=== PATIENT | female | born 1935 | race African-American/Black ===

== ENCOUNTER 2024-08-16 17:43 | Inpatient (IN) | payer OTHER ==
[2024-08-16 18:23] VITALS: BMI 33.3
[2024-08-16] MEDS ORDERED: ACETAMINOPHEN INJECTION 100 ML ONE (19:54)
[2024-08-16] MEDS: ACETAMINOPHEN 1000 MG/100 ML BAG IVPB ONE (20:19)
[2024-08-16 20:31] LABS: BASO % 0.5 % (0-2.0); EOS % 0.7 % (0-4.5); HEMATOCRIT 45.3 % (32.4-45.2); HEMOGLOBIN 14.8 GM/dL (10.7-15.3); LYMPH % 18.6 % (8-40); MCH 29.8 pg (25.7-33.7); MCHC 32.7 g/dl (32.0-36.0); MEAN CELL VOLUME 91.2 fl (80-96); MEAN PLT VOLUME 10.6 fl (7.5-11.1); MONO % 7.5 % (3.8-10.2); NEUT % 72.7 % (42.8-82.8); PLATELET COUNT 156 10^3/uL (134-434); RBC 4.97 M/mm3 (3.60-5.2); RDW 14.7 % (11.6-15.6); WHITE BLOOD COUNT 8.3 K/mm3 (4.0-10.0)
[2024-08-16 20:46] LABS: CHLORIDE 106 mmol/L (98-107); SODIUM 136 mmol/L (136-145)
[2024-08-16 20:47] LABS: POTASSIUM 7.8 mmol/L (3.5-5.1)
[2024-08-16 20:48] LABS: CALCIUM 9.6 mg/dL (8.5-10.1)
[2024-08-16 20:49] LABS: ALBUMIN 3.7 g/dl (3.4-5.0); ANION GAP 3 mmol/L (4-13); BLOOD UREA NITROGEN 15.2 mg/dL (7-18); CO2 27 mmol/L (21-32); GLUCOSE,RANDOM 90 mg/dL (74-106)
[2024-08-16 20:52] LABS: CREATININE 1.1 mg/dL (0.55-1.3)
[2024-08-16 20:53] LABS: SGOT/AST 102 U/L (15-37); SGPT/ALT 38 U/L (13-61)
[2024-08-16 20:54] LABS: BILIRUBIN,TOTAL 1.1 mg/dL (0.2-1); TOT PROT 8.3 g/dl (6.4-8.2)
[2024-08-16 20:55] LABS: ALK PHOS 81 U/L (45-117)
[2024-08-16 20:57] LABS: N-TERMINAL BNP 180.1 pg/ml (5-450)
[2024-08-16 22:21] LABS: POTASSIUM 3.6 mmol/L (3.5-5.1)
[2024-08-16 22:24] LABS: ALBUMIN 3.2 g/dl (3.4-5.0); BLOOD UREA NITROGEN 15.8 mg/dL (7-18); CALCIUM 9.2 mg/dL (8.5-10.1)
[2024-08-16 22:27] LABS: CREATININE 1.1 mg/dL (0.55-1.3)
[2024-08-16 22:29] LABS: TOT PROT 6.2 g/dl (6.4-8.2)
[2024-08-17] MEDS ORDERED: DIPHTH,PERTUSS(ACELL),TET 0.5 ML DISP.SYRIN IM ONE (00:01)
[2024-08-17] MEDS: DIPHTH,PERTUSS(ACELL),TET 0.5 ML DISP.SYRIN IM ONE (00:05)
[2024-08-17 01:46] LABS: PH,URINE 5.5 (5.0-8.0); URINE APPEARANCE CLEAR; URINE BILIRUBIN NEGATIVE (NEGATIVE); URINE COLOR YELLOW; URINE GLUCOSE (UA) NEGATIVE (NEGATIVE); URINE KETONE TRACE (NEGATIVE); URINE LEUK ESTERASE NEGATIVE (NEGATIVE); URINE NITRITE NEGATIVE (NEGATIVE); URINE PROTEIN NEGATIVE (NEGATIVE)
[2024-08-17] MEDS ORDERED: LABETALOL HCL 200 MG TABLET (FP) PO SCH (06:00)
[2024-08-17] MEDS: levETIRAcetam 250 MG TABLET PO SCH (10:56)
[2024-08-17] MEDS: CITALOPRAM HYDROBROMIDE 10 MG TABLET PO SCH (10:56)
[2024-08-17] MEDS: LABETALOL HCL 200 MG TABLET (FP) PO SCH (22:06)
[2024-08-17] MEDS: SENNOSIDES 8.6MG TABLET (FP) PO SCH (22:06)
[2024-08-17] MEDS: AMMONIUM LACTATE 12% CREAM 140 GM TUBE TP SCH (22:07)
[2024-08-18 08:28] LABS: POTASSIUM 4.1 mmol/L (3.5-5.1)
[2024-08-18 08:35] LABS: HEMATOCRIT 38.7 % (32.4-45.2); HEMOGLOBIN 12.7 GM/dL (10.7-15.3); MCHC 32.7 g/dl (32.0-36.0); MEAN CELL VOLUME 91.8 fl (80-96); MEAN PLT VOLUME 10.4 fl (7.5-11.1); PLATELET COUNT 93 10^3/uL (134-434); RBC 4.22 M/mm3 (3.60-5.2); RDW 14.6 % (11.6-15.6); WHITE BLOOD COUNT 8.2 K/mm3 (4.0-10.0)
[2024-08-18 08:36] LABS: CALCIUM 8.8 mg/dL (8.5-10.1)
[2024-08-18 08:37] LABS: ALBUMIN 3.2 g/dl (3.4-5.0); BLOOD UREA NITROGEN 15.2 mg/dL (7-18); MAGNESIUM 2.2 mg/dL (1.8-2.4)
[2024-08-18 08:40] LABS: BILIRUBIN,TOTAL 1.2 mg/dL (0.2-1); CREATININE 1.1 mg/dL (0.55-1.3); PHOSPHOROUS 3.8 mg/dL (2.5-4.9); TOT PROT 6.1 g/dl (6.4-8.2)
[2024-08-18] MEDS: OLANZapine 10 MG TABLET PO SCH (10:26)
[2024-08-18] MEDS: ENOXAPARIN NA (PORCINE) 40 MG/0.4 ML DISP.SYRIN SQ SCH (21:23)
[2024-08-19 07:36] LABS: HEMATOCRIT 37.1 % (32.4-45.2); HEMOGLOBIN 11.9 GM/dL (10.7-15.3); MCH 29.9 pg (25.7-33.7); MEAN CELL VOLUME 93.3 fl (80-96); MEAN PLT VOLUME 10.2 fl (7.5-11.1); PLATELET COUNT 131 10^3/uL (134-434); RBC 3.98 M/mm3 (3.60-5.2); RDW 14.8 % (11.6-15.6); WHITE BLOOD COUNT 7.9 K/mm3 (4.0-10.0)
[2024-08-19 07:52] LABS: POTASSIUM 4.2 mmol/L (3.5-5.1)
[2024-08-19 07:55] LABS: BLOOD UREA NITROGEN 29.7 mg/dL (7-18); CALCIUM 9.1 mg/dL (8.5-10.1)
[2024-08-19 07:58] LABS: ALBUMIN 2.9 g/dl (3.4-5.0)
[2024-08-19 08:00] LABS: BILIRUBIN,TOTAL 0.7 mg/dL (0.2-1)
[2024-08-19 08:01] LABS: CREATININE 1.4 mg/dL (0.55-1.3)
[2024-08-20 14:18] VITALS: BP 108/51; PULSE 77; RESP 16; TEMP 97.7
== END 2024-08-20 14:10 | DRG 312 ==
LOC: JER 17:43 → JERBED 23:22 → OBSVTOIN 08-17 01:22 → J4S 08-17 03:13
PROVIDERS: ADMIT Internal Medicine; ATTEND Internal Medicine
DX: R55 Syncope and collapse (principal); G30.9 Alzheimer's disease, unspecified; F02.80 Dementia in other diseases classified elsewhere, unspecified severity, without behavioral disturbance, psychotic disturbance, mood disturbance, and anxiety; F20.9 Schizophrenia, unspecified; S00.81XA Abrasion of other part of head, initial encounter; T43.595A Adverse effect of other antipsychotics and neuroleptics, initial encounter; W19.XXXA Unspecified fall, initial encounter; Y93.9 Activity, unspecified; Y92.89 Other specified places as the place of occurrence of the external cause; Y99.9 Unspecified external cause status; E78.5 Hyperlipidemia, unspecified
CPT/HCPCS: 36415; 70450-TC; 72125-TC; 72170-TC-FY; 73562-TC-LT-FY; 80053; 81003; 82962; 83735; 83880; 84100; 84484; 85025; 85027; 87086; 90715; 93005; 93010; 93306-TC; 97116-GP; 97161-GP; 99285-25; G0378; J0131